=== PATIENT | male | born 2000 | race Caucasian/White ===

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

== ENCOUNTER 2020-01-02 15:24 | Emergency (ER) | payer OTHER ==
[~2020-01-02] VITALS: Ht 165.1 cm; Wt 68.0 kg
[2020-01-02 15:27] VITALS: BP 136/68
--- NOTE | 2020-01-02 16:49 | NUR ---
Pt ambulated to bed 5.
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
[2020-01-02] MEDS ORDERED: KETOROLAC 60 MG/2 ML VIAL IM ONE (17:15)
[2020-01-02 17:44] VITALS: BP 136/68
== END 2020-01-02 17:43 | disposition home or self-care (01) ==
LOC: MED 15:24
DX: S33.5XXA Sprain of ligaments of lumbar spine, initial encounter (principal); Z79.899 Other long term (current) drug therapy; X50.9XXA Other and unspecified overexertion or strenuous movements or postures, initial encounter; Y93.89 Activity, other specified; Y92.89 Other specified places as the place of occurrence of the external cause; Y99.8 Other external cause status
CPT/HCPCS: 96372; 99283; J1885

== ENCOUNTER 2020-01-04 10:03 | Emergency (ER) | payer OTHER ==
[~2020-01-04] VITALS: Ht 170.2 cm; Wt 60.4 kg
[2020-01-04 10:04] VITALS: BP 122/72
--- NOTE | 2020-01-04 10:10 | NUR ---
PATIENT AMBULATED TO BED 12.
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
[2020-01-04 11:15] LABS: BASOPHILS % (AUTO) 0.2 % (0.0-2.0); EOSINOPHILS % (AUTO) 0.2 % (0.0-4.0); HEMATOCRIT 44.1 % (36-52); HEMOGLOBIN 14.7 g/dL (12.0-18.0); LYMPHOCYTES % (AUTO) 8.9 % (20.5-51.1); MEAN CORPUSCULAR HEMOGLOBIN 28 pg (27-31); MEAN CORPUSCULAR HGB CONC 33 g/dL (33-37); MEAN CORPUSCULAR VOLUME 84.2 fL (80-94); MONOCYTES # (AUTO) 0.6 K/uL (0.8-1.0); MONOCYTES % (AUTO) 5.7 % (1.7-9.3); NEUTROPHILS # (AUTO) 9.5 K/uL (1.8-7.7); PLATELET COUNT (AUTO) 249 K/uL (140-450); RED BLOOD CELL COUNT(AUTO) 5.24 MIL/uL (4.20-6.10); RED CELL DISTRIBUTION WIDTH 14.2 % (11.6-13.7); WHITE BLOOD COUNT (AUTO) 11.1 K/uL (4.5-11.0)
[2020-01-04 11:32] LABS: ALBUMIN 4.2 g/dL (3.4-5.0); CARBON DIOXIDE 29.1 mmol/L (21-32); CREATININE 1.1 mg/dL (0.6-1.3); POTASSIUM 4.1 mmol/L (3.5-5.1); TOTAL BILIRUBIN 1.1 mg/dL (0.0-1.0)
[2020-01-04 11:59] VITALS: BP 119/69
--- NOTE | 2020-01-04 12:00 | NUR ---
Patient discharged with v/s stable. Written and verbal after care instructions given and explained. Patient alert, oriented and verbalized understanding of instructions. Ambulatory with steady gait. All questions addressed prior to discharge. ID band removed. Patient advised to follow up with PMD. Rx of carafate/zofran/pepcid given. Patient educated on indication of medication including possible reaction and side effects. Opportunity to ask questions provided and answered.
== END 2020-01-04 12:00 | disposition home or self-care (01) ==
LOC: MED 10:03
DX: K52.9 Noninfective gastroenteritis and colitis, unspecified (principal); R11.10 Vomiting, unspecified; R19.7 Diarrhea, unspecified; Z79.899 Other long term (current) drug therapy
CPT/HCPCS: 36415; 71045; 74018; 80053; 83690; 85025; 99284; Q0092

== ENCOUNTER 2020-01-08 06:43 | Emergency (ER) | payer OTHER ==
[~2020-01-08] VITALS: Ht 165.1 cm; Wt 62.6 kg
[2020-01-08 06:48] VITALS: BP 117/69
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
--- NOTE | 2020-01-08 07:15 | NUR ---
REPORT GIVEN TO JAYME CANDELARIA FOR TRANSFER OF CARE .
[2020-01-08 07:51] LABS: BASOPHILS % (AUTO) 0.5 % (0.0-2.0); EOSINOPHILS # (AUTO) 0.1 K/uL (0-0.4); EOSINOPHILS % (AUTO) 1.5 % (0.0-4.0); HEMATOCRIT 45.5 % (36-52); LYMPHOCYTES # (AUTO) 1.5 K/uL (2.0-11.5); LYMPHOCYTES % (AUTO) 29.2 % (20.5-51.1); MEAN CORPUSCULAR HEMOGLOBIN 28 pg (27-31); MEAN CORPUSCULAR HGB CONC 33 g/dL (33-37); MONOCYTES # (AUTO) 0.5 K/uL (0.8-1.0); MONOCYTES % (AUTO) 9.8 % (1.7-9.3); PLATELET COUNT (AUTO) 254 K/uL (140-450); RED BLOOD CELL COUNT(AUTO) 5.35 MIL/uL (4.20-6.10); RED CELL DISTRIBUTION WIDTH 14.5 % (11.6-13.7)
--- NOTE | 2020-01-08 08:12 | NUR ---
PT QUIETLY RESTING IN BED. NO DISTRESS VERBALIZED, OR NOTED AT THIS TIME. VSS, R/R EQUAL, AND UNLABORED. SIDE RAIL X1, BED IN LOW POSITION, WILL CONTINUE TO MONITOR.
[2020-01-08 08:28] LABS: ALBUMIN 4.3 g/dL (3.4-5.0); ANION GAP 10.6 (8-16); CARBON DIOXIDE 28.5 mmol/L (21-32); POTASSIUM 4.1 mmol/L (3.5-5.1); TOTAL BILIRUBIN 1.6 mg/dL (0.0-1.0)
--- NOTE | 2020-01-08 11:33 | NUR ---
PT APPEARS TO BE SLEEPING. NO DISTRESS NOTED. VSS, R/R EQUAL, AND UNLABORED. SIDE RAIL X1, BED IN LOW POSITION, WILL CONTINUE TO MONITOR.
--- NOTE | 2020-01-08 11:44 | NUR ---
PT AMBULATED TO THE RESTROOM WITH STEADY GAIT. "I'M OK, I JUST NEEDED TO GO TO THE BATHROOM." NO DISTRESS NOTED AT THIS TIME.
[2020-01-08 12:03] VITALS: BP 117/69
--- NOTE | 2020-01-08 12:04 | NUR ---
Patient discharged with v/s stable. Written and verbal after care instructions given and explained. Patient verbalized understanding. Ambulatory with steady gait. All questions addressed prior to discharge. Advised to follow up with PMD.
[2020-01-08 14:15] LABS: FREE T4 (FREE THYROXINE) 1.42 ng/dL (0.76-1.46); THYROID STIMULATING HORMONE 1.03 uIU/mL (0.34-3.74)
== END 2020-01-08 12:04 | disposition home or self-care (01) ==
LOC: MED 06:43
DX: F41.9 Anxiety disorder, unspecified (principal); R00.2 Palpitations; F90.9 Attention-deficit hyperactivity disorder, unspecified type; Z79.899 Other long term (current) drug therapy
CPT/HCPCS: 36415; 80053; 84439; 84443; 84484; 85025; 93005; 99284

== ENCOUNTER 2020-02-17 12:18 | Emergency (ER) | payer OTHER ==
[~2020-02-17] VITALS: Ht 167.6 cm; Wt 59.9 kg
[2020-02-17 12:22] VITALS: BP 114/63
--- NOTE | 2020-02-17 12:44 | NUR ---
19/M C/O RIGHT SIDED EYE PAIN RADIATING TO RIGHT TEMPORAL THAT BEGAN LAST NIGHT WHILE SITTING DOWN/RESTING. DENIES FALLS/TRAUMA. ALSO C/O MILD DIZZINESS, NAUSEA THIS MORNING. DENIES ANY VISION CHANGES. PT HAS NOT TAKEN ANY MEDS FOR HEADACHE. VSS. NAD. HX-DENIES
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
[2020-02-17] MEDS ORDERED: KETOROLAC 15 MG/ML VIAL IM ONE (15:30)
[2020-02-17 15:45] VITALS: BP 114/72
--- NOTE | 2020-02-17 15:45 | NUR ---
Patient discharged with v/s stable. Written and verbal after care instructions given and explained. Patient alert, oriented and verbalized understanding of instructions. Ambulatory with steady gait. All questions addressed prior to discharge. ID band removed. Patient advised to follow up with PMD. Rx of Excedrin migraine given. Patient educated on indication of medication including possible reaction and side effects. Opportunity to ask questions provided and answered.
== END 2020-02-17 15:45 | disposition home or self-care (01) ==
LOC: MED 12:18
DX: R51 Headache (principal); Z79.899 Other long term (current) drug therapy
CPT/HCPCS: 96372; 99283; J1885

== ENCOUNTER 2020-10-23 23:18 | Emergency (ER) | payer OTHER ==
[~2020-10-23] VITALS: Ht 167.6 cm; Wt 63.5 kg
[2020-10-23 23:19] VITALS: BP 118/63
--- NOTE | 2020-10-23 23:19 | NUR ---
TO BED AMBULATORY
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
[2020-10-23] MEDS ORDERED: ACETAMINOPHEN 325 MG TAB PO ONE (23:30)
--- NOTE | 2020-10-23 23:54 | NUR ---
PT TAKEN TO CT VIA W/C
[2020-10-24] MEDS ORDERED: IBUP-2213 PO (01:06)
[2020-10-24 01:10] VITALS: BP 118/63
== END 2020-10-24 01:10 | disposition home or self-care (01) ==
LOC: MED 23:18
DX: S00.03XA Contusion of scalp, initial encounter (principal); Z79.899 Other long term (current) drug therapy; W51.XXXA Accidental striking against or bumped into by another person, initial encounter; Y93.66 Activity, soccer; Y92.89 Other specified places as the place of occurrence of the external cause; Y99.8 Other external cause status
CPT/HCPCS: 70450; 99284

== ENCOUNTER 2021-11-06 07:47 | Emergency (ER) | payer OTHER ==
[~2021-11-06] VITALS: Ht 167.6 cm; Wt 59.5 kg
[~2021-11-06 07:47] MED LIST changes: +IBUP-2213 PO
[2021-11-06 07:53] VITALS: BP 116/67
--- NOTE | 2021-11-06 07:56 | NUR ---
PT AMBULATED TO ER BED 1
[2021-11-06] MEDS ORDERED: NACL 0.9% 1,000 ML IV ONE ×2 (08:05→08:35)
[2021-11-06 08:39] LABS: BASOPHILS % (AUTO) 0.3 % (0.0-2.0); EOSINOPHILS # (AUTO) 0.1 K/uL (0-0.4); EOSINOPHILS % (AUTO) 1.3 % (0.0-4.0); HEMATOCRIT 40.5 % (36-52); HEMOGLOBIN 13.5 g/dL (12.0-18.0); LYMPHOCYTES # (AUTO) 1.3 K/uL (2.0-11.5); LYMPHOCYTES % (AUTO) 27.4 % (20.5-51.1); MEAN CORPUSCULAR HEMOGLOBIN 28 pg (27-31); MEAN CORPUSCULAR HGB CONC 33 g/dL (33-37); MEAN CORPUSCULAR VOLUME 84.3 fL (80-94); MONOCYTES # (AUTO) 0.5 K/uL (0.8-1.0); MONOCYTES % (AUTO) 10.4 % (1.7-9.3); NEUTROPHILS # (AUTO) 2.9 K/uL (1.8-7.7); NEUTROPHILS % (AUTO) 60.6 % (42.2-75.2); PLATELET COUNT (AUTO) 230 K/uL (140-450); RED CELL DISTRIBUTION WIDTH 14.1 % (11.6-13.7); WHITE BLOOD COUNT (AUTO) 4.7 K/uL (4.8-10.8)
[2021-11-06] MEDS: ONDANSETRON 4 MG/2 ML VIAL IVP ONE ×2 (08:51→08:52)
[2021-11-06] MEDS: KETOROLAC 30 MG/ML VIAL IVP ONE (08:53)
[2021-11-06] MEDS: diphenhydrAMINE 50 MG/ML VIAL IVP ONE ×2 (08:55→08:56)
--- NOTE | 2021-11-06 09:06 | NUR ---
21 y/o male bib self with c/o nausea x 1 day. Patient has nausea and headache. Patient feels like throwing up but can't throw up. Patient denies any SOB. Patient also denies being around anyone who is sick. Patient thinks he ate some bad salad and that is what is causing his symptoms. Medical History: Denies NKDA
[2021-11-06 09:28] LABS: ANION GAP 8.3 (8-16); CARBON DIOXIDE 28.7 mmol/L (21-32); CREATININE 1.1 mg/dL (0.6-1.3)
--- NOTE | 2021-11-06 10:24 | NUR ---
Patient discharged with v/s stable. Written and verbal after care instructions given and explained. Patient verbalized understanding. Ambulatory with steady gait. All questions addressed prior to discharge. Advised to follow up with PMD. WORK NOTE HANDED TO PATIENT.
--- NOTE | 2021-11-06 10:25 | NUR ---
The patient's care was reviewed and supervised by Taylor Conde RN.
== END 2021-11-06 10:23 | disposition home or self-care (01) ==
LOC: MED 07:47
DX: R10.12 Left upper quadrant pain (principal); R11.0 Nausea
CPT/HCPCS: 36415; 80053; 81002; 83690; 85025; 96361; 96374; 96375; 99284; J1200; J1885; J2405; J7030

== ENCOUNTER 2021-11-29 10:08 | Emergency (ER) | payer OTHER ==
[~2021-11-29] VITALS: Ht 167.6 cm; Wt 59.6 kg
[2021-11-29 10:25] VITALS: BP 119/72
--- NOTE | 2021-11-29 10:35 | NUR ---
DR BEJARANO AT PT SIDE FOR EVAL
[2021-11-29] MEDS ORDERED: TRAM50TA1 PO (10:40)
[2021-11-29] MEDS ORDERED: CARI350T PO (10:40)
[2021-11-29] MEDS ORDERED: NAPR-1704 PO (10:40)
--- NOTE | 2021-11-29 10:44 | NUR ---
21 Y/O MALE C/O OF LOW BACK PAIN X 2DAYS DENIES ANY INJURY OR TRAUMA. DENIES ANY LOSS OF SENSATION, TINGLING NKA PMH: DENIES
--- NOTE | 2021-11-29 10:45 | NUR ---
PT DISCHARGED BY DR BEJARANO Patient discharged with v/s stable. Written and verbal after care instructions ABOUT ACUTE BACK PAIN given and explained. Patient alert, oriented and verbalized understanding of instructions. Ambulatory with steady gait. All questions addressed prior to discharge. ID band removed. Patient advised to follow up with PMD. Rx of SOMA, NAPROXEN, TRAMADOL given. Patient educated on indication of medication including possible reaction and side effects. Opportunity to ask questions provided and answered.
== END 2021-11-29 10:45 | disposition home or self-care (01) ==
LOC: MED 10:08
DX: M54.50 Low back pain, unspecified (principal); Z79.899 Other long term (current) drug therapy
CPT/HCPCS: 99283

== ENCOUNTER 2022-03-27 06:29 | Emergency (ER) | payer OTHER ==
[~2022-03-27] VITALS: Ht 167.6 cm; Wt 61.4 kg
[~2022-03-27 06:29] MED LIST changes: +CARI350T PO; +NAPR-1704 PO; +TRAM-748 PO
[2022-03-27 06:35] VITALS: BP 109/68
--- NOTE | 2022-03-27 06:38 | NUR ---
PT AMB TO ER BED 9
[2022-03-27 06:39] VITALS: BP 109/68
--- NOTE | 2022-03-27 06:43 | NUR ---
Dr. Jensen examining patient.
--- NOTE | 2022-03-27 06:44 | NUR ---
DR BUENROSTRO AT BEDSIDE
--- NOTE | 2022-03-27 06:50 | NUR ---
COVID AND FLU SWABS COLLECTED AND SENT TO LAB
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
[2022-03-27] MEDS ORDERED: NAPR-1704 PO (06:54)
--- NOTE | 2022-03-27 07:02 | NUR ---
Patient discharged with v/s stable. Written and verbal after care instructions given and explained. Patient alert, oriented and verbalized understanding of instructions. Ambulatory with steady gait. All questions addressed prior to discharge. ID band removed. Patient advised to follow up with PMD. Rx of NAPROXEN given.
[2022-03-28] MEDS ORDERED: METH-1681 PO (05:25)
[2022-03-28] MEDS ORDERED: LID5T TP (05:25)
== END 2022-03-27 07:02 | disposition home or self-care (01) ==
LOC: MED 06:29
DX: B34.9 Viral infection, unspecified (principal); Z20.822 Contact with and (suspected) exposure to COVID-19; M54.50 Low back pain, unspecified
CPT/HCPCS: 81002; 99283

== ENCOUNTER 2022-03-28 02:37 | Emergency (ER) | payer OTHER ==
[~2022-03-28] VITALS: Ht 167.6 cm; Wt 61.2 kg
[2022-03-28 03:12] VITALS: BP 130/72
--- NOTE | 2022-03-28 03:15 | NUR ---
TO LOBBY A/W BED AMBULATORY
--- NOTE | 2022-03-28 04:23 | NUR ---
PT TO BED 7
[2022-03-28] MEDS ORDERED: methocarbamoL 500 MG TAB PO STA (05:02)
[2022-03-28] MEDS ORDERED: ACETAMINOPHEN 325 MG TAB PO ONE (05:05)
[2022-03-28] MEDS ORDERED: LIDOCAINE 5% 1 EA PATCH TP ONE (05:05)
[2022-03-28] MEDS ORDERED: KETOROLAC 15 MG/ML VIAL IM ONE (05:05)
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
[2022-03-28] MEDS ORDERED: METH-1681 PO (05:25)
[2022-03-28] MEDS ORDERED: LID5T TP (05:25)
--- NOTE | 2022-03-28 05:51 | NUR ---
The patient's care was reviewed and supervised by Tomasa Marin RN, RN.
== END 2022-03-28 05:47 | disposition home or self-care (01) ==
LOC: MED 02:37
DX: M54.50 Low back pain, unspecified (principal); J06.9 Acute upper respiratory infection, unspecified
CPT/HCPCS: 96372; 99284; J1885

== ENCOUNTER 2022-06-07 07:15 | Emergency (ER) | payer OTHER ==
[~2022-06-07] VITALS: Ht 162.6 cm; Wt 74.8 kg
[~2022-06-07 07:15] MED LIST changes: +LID5T TP; +METH-1681 PO
[2022-06-07 07:23] VITALS: BP 112/65
--- NOTE | 2022-06-07 07:37 | NUR ---
DR LOVELL AT BEDSIDE FOR EVAL
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
[2022-06-07] MEDS ORDERED: ACETAMINOPHEN EXTRA STRENGTH 500 MG TAB PO ONE (07:40)
[2022-06-07] MEDS ORDERED: ONDANSETRON 4 MG ODT PO ONE (07:45)
--- NOTE | 2022-06-07 07:45 | NUR ---
PT TAKEN TO CT VIA EULALIA
[2022-06-07] MEDS ORDERED: IBUP-2213 PO (08:19)
[2022-06-07] MEDS ORDERED: ONDA-188 PO (08:19)
--- NOTE | 2022-06-07 08:26 | NUR ---
Patient discharged with v/s stable. Written and verbal after care instructions ABOUT CONCUSSION given and explained. Patient alert, oriented and verbalized understanding of instructions. Ambulatory with steady gait. All questions addressed prior to discharge. ID band removed. Patient advised to follow up with PMD. Rx of IBUPROFEN AND ZOFRAN ODT given. Patient educated on indication of medication including possible reaction and side effects. Opportunity to ask questions provided and answered.
== END 2022-06-07 08:26 | disposition home or self-care (01) ==
LOC: MED 07:15
DX: S06.0X0A Concussion without loss of consciousness, initial encounter (principal); X58.XXXA Exposure to other specified factors, initial encounter; Y93.89 Activity, other specified; Y92.89 Other specified places as the place of occurrence of the external cause; Y99.8 Other external cause status
CPT/HCPCS: 70450; 99284; Q0162

== ENCOUNTER 2022-06-22 23:21 | Emergency (ER) | payer OTHER ==
[~2022-06-22] VITALS: Ht 167.6 cm; Wt 65.8 kg
[~2022-06-22 23:21] MED LIST changes: +ONDA-188 PO
[2022-06-22 23:40] VITALS: BP 112/48
--- NOTE | 2022-06-22 23:43 | NUR ---
TO LOBBY A/W BED AMBULATORY
--- NOTE | 2022-06-23 00:54 | NUR ---
PT TAKEN TO BED 11
--- NOTE | 2022-06-23 01:43 | NUR ---
Patient resting in bed, A/Ox4, chest rise and fall symmetrical, no s/s of distress.
--- NOTE | 2022-06-23 01:55 | NUR ---
Dr. Brand examining patient.
[2022-06-23] MEDS ORDERED: CETI1TAB PO (02:08)
[2022-06-23] MEDS ORDERED: KEN.1O80 TP (02:08)
[2022-06-23 02:22] VITALS: BP 117/68
== END 2022-06-23 02:23 | disposition home or self-care (01) ==
LOC: MED 23:31
DX: L25.9 Unspecified contact dermatitis, unspecified cause (principal)
CPT/HCPCS: 99283

== ENCOUNTER 2022-09-14 11:27 | Emergency (ER) | payer OTHER ==
[~2022-09-14] VITALS: Ht 167.6 cm; Wt 63.5 kg
[~2022-09-14 11:27] MED LIST changes: +CETI1TAB PO; +KEN.1O80 TP
[2022-09-14 11:33] VITALS: BP 106/79
[2022-09-14] MEDS ORDERED: BACITRACIN OINT 500 UNITS/GM PKT TP ONE (11:50)
[2022-09-14] MEDS ORDERED: IBUPROFEN 600 MG TAB PO ONE (11:50)
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
[2022-09-14] MEDS ORDERED: AMOX1TAB8 PO (13:32)
[2022-09-14] MEDS ORDERED: BACI-416 TP (13:32)
--- NOTE | 2022-09-14 13:43 | NUR ---
WOUND DRESSED WITH NON ADHERENT BANDAGE THEN FITTED COVERED FROG SPLINT OVER MIDDLE FINGER.
[2022-09-14 13:50] VITALS: BP 112/67
== END 2022-09-14 13:50 | disposition home or self-care (01) ==
LOC: MED 11:27
DX: S61.213A Laceration without foreign body of left middle finger without damage to nail, initial encounter (principal); W54.0XXA Bitten by dog, initial encounter; Y93.89 Activity, other specified; Y92.89 Other specified places as the place of occurrence of the external cause; Y99.8 Other external cause status
CPT/HCPCS: 73140; 90471; 90715; 99283

== ENCOUNTER 2023-07-13 02:12 | Emergency (ER) | payer OTHER ==
[~2023-07-13] VITALS: Ht 167.6 cm; Wt 63.0 kg
[~2023-07-13 02:12] MED LIST changes: +AMOX1TAB8 PO; +BACI-418 TP
[2023-07-13 02:32] VITALS: BP 141/94; PULSE 75; RESP 18; TEMP 97.4; O2SAT 100
[2023-07-13] MEDS: HYDROcodone/APAP 5/325 MG 1 TAB TAB PO ONE (05:43)
[2023-07-13] MEDS ORDERED: AMOX1TAB8 PO (07:35)
[2023-07-13] MEDS ORDERED: IBUP-2213 PO (07:40)
[2023-07-13] MEDS ORDERED: ACET-2619 PO (07:40)
[2023-07-13] MEDS ORDERED: KETOROLAC 30 MG/ML VIAL ONE (07:42)
[2023-07-13] MEDS ORDERED: AMOXIL/CLAVULANATE 875/125 MG 1 TAB ONE (07:42)
[2023-07-13] MEDS: AMOXIL/CLAVULANATE 875/125 MG 1 TAB PO ONE (07:47)
[2023-07-13] MEDS: KETOROLAC 30 MG/ML VIAL IM ONE (07:51)
== END 2023-07-13 08:10 | disposition home or self-care (01) ==
LOC: MED 02:12
DX: S63.697A Other sprain of left little finger, initial encounter (principal); S05.12XA Contusion of eyeball and orbital tissues, left eye, initial encounter; Z79.899 Other long term (current) drug therapy; Y08.89XA Assault by other specified means, initial encounter; Y93.89 Activity, other specified; Y92.89 Other specified places as the place of occurrence of the external cause; Y99.8 Other external cause status
CPT/HCPCS: 29130; 70450; 70486; 73130; 96372; 99285; J1885

== ENCOUNTER 2024-01-15 02:30 | Emergency (ER) | payer OTHER ==
[~2024-01-15] VITALS: Ht 167.6 cm; Wt 59.0 kg
[~2024-01-15 02:30] MED LIST changes: +ACET-2619 PO
[2024-01-15 02:40] VITALS: BP 117/75; PULSE 58; RESP 18; TEMP 98; O2SAT 98
[2024-01-15] MEDS: methylPREDNISolone SS 125 MG/2 ML VIAL IVP ONE (04:01)
[2024-01-15] MEDS: diphenhydrAMINE 50 MG/ML VIAL IVP ONE (04:03)
[2024-01-15] MEDS: FAMOTIDINE 20 MG/2 ML VIAL IVP ONE (04:05)
[2024-01-15] MEDS ORDERED: PRED20TA5 PO (05:27)
[2024-01-15] MEDS ORDERED: BEN50 PO (05:27)
[2024-01-15 05:40] VITALS: BP 114/72; PULSE 57; RESP 14; TEMP 98; O2SAT 98
== END 2024-01-15 05:40 | disposition home or self-care (01) ==
LOC: MED 02:30
DX: T78.40XA Allergy, unspecified, initial encounter (principal); M25.531 Pain in right wrist; R06.02 Shortness of breath; Z79.1 Long term (current) use of non-steroidal anti-inflammatories (NSAID); Z79.899 Other long term (current) drug therapy; X58.XXXA Exposure to other specified factors, initial encounter
CPT/HCPCS: 73110; 96374; 96375; 99284; J1200; J2919; J3490; Q0092

== ENCOUNTER 2024-02-26 21:48 | Emergency (ER) | payer OTHER ==
[~2024-02-26] VITALS: Ht 167.6 cm; Wt 81.6 kg
[~2024-02-26 21:48] MED LIST changes: +BEN50 PO; +PRED20TA5 PO
[2024-02-26 22:22] VITALS: BP 117/78; PULSE 79; RESP 14; TEMP 97.2; O2SAT 99
[2024-02-27] MEDS: IBUPROFEN 800 MG TAB PO ONE (01:19)
[2024-02-27] MEDS ORDERED: IBUP-1842 PO (01:25)
== END 2024-02-27 01:39 | disposition home or self-care (01) ==
LOC: MED 21:48
DX: S62.305A Unspecified fracture of fourth metacarpal bone, left hand, initial encounter for closed fracture (principal); Z79.899 Other long term (current) drug therapy; X58.XXXA Exposure to other specified factors, initial encounter; Y93.66 Activity, soccer; Y92.89 Other specified places as the place of occurrence of the external cause; Y99.8 Other external cause status
CPT/HCPCS: 73130; 99283